=== PATIENT | male | born 1935 | race Caucasian/White ===

== ENCOUNTER → 2017-04-20 | Outpatient (CLI) | payer MEDICARE | END | disposition home or self-care (01) | LOC: PCVCIMAG 09:38 | PROVIDERS: ATTEND Internal Medicine | DX: I50.32 Chronic diastolic (congestive) heart failure (principal); E78.2 Mixed hyperlipidemia; I26.99 Other pulmonary embolism without acute cor pulmonale; I63.429 Cerebral infarction due to embolism of unspecified anterior cerebral artery; I10 Essential (primary) hypertension | CPT/HCPCS: 80061; 93005; 93306; G0463 ==

== ENCOUNTER → 2017-10-23 | Outpatient (CLI) | payer MEDICARE ==
--- NOTE | 2017-10-23 16:45 | PCVCIMAG ---
APPROVED REPORT Laterality: Bilateral Patient Location: Out-Patient Indications Stenosis Doppler Spectral Velocity Analysis PSV / EDVPSV / EDV ECA (R) 124 / 8 cm/sECA (L) 200 / 16 cm/s dICA (R) 81 / 24 cm/sdICA (L) 92 / 30 cm/s Gary (R) 97 / 18 cm/smICA (L) 131 / 30 cm/s pICA (R) 102 / 19 cm/spICA (L) 164 / 50 cm/s Bulb (R) 71 / 14 cm/sBulb (L) 92 / 18 cm/s dCCA (R) 95 / 14 cm/sdCCA (L) 98 / 14 cm/s mCCA (R) 106 / 16 cm/smCCA (L) 114 / 23 cm/s Vert (R) 76 / 19 cm/sVert (L) 32 / 9 cm/s ICA/CCA 1.07 ICA/CCA 1.95 Basic Measurements Blood Pressure: Pulses: Right Left RightLeft Brachial(Sitting) 140/72mmHgTemporal Real Time B-Mode Imaging Vert. (R)AntegradeVert. (L)Antegrade Findings The right carotid bulb has mild plaque. The right proximal internal carotid artery shows no significant stenosis. The right common carotid artery shows no significant stenosis. The right external carotid artery shows no significant stenosis. The left carotid bulb has moderate calcified plaque. The left proximal internal carotid artery shows 60-70% stenosis. The left common carotid artery shows no significant stenosis. The left external carotid artery shows >50% stenosis. Conclusion 1. Right internal carotid artery plaquing 2. Left internal carotid artery stenosis (60-70%) 3. Antegrade vertebral flow
== END | disposition home or self-care (01) ==
LOC: PCVCIMAG 14:46
PROVIDERS: ATTEND Internal Medicine Cardiovascular Disease
DX: I65.23 Occlusion and stenosis of bilateral carotid arteries (principal); E78.01 Familial hypercholesterolemia; I77.9 Disorder of arteries and arterioles, unspecified; I67.9 Cerebrovascular disease, unspecified; Z79.899 Other long term (current) drug therapy
CPT/HCPCS: 80061; 93005; 93880; G0463

== ENCOUNTER → 2017-10-23 | Outpatient (CLI) | payer MEDICARE | END | disposition home or self-care (01) | LOC: PCVCCLINIC 16:01 | PROVIDERS: ATTEND Internal Medicine Cardiovascular Disease | DX: I10 Essential (primary) hypertension (principal); E78.01 Familial hypercholesterolemia; I77.9 Disorder of arteries and arterioles, unspecified; I65.23 Occlusion and stenosis of bilateral carotid arteries; Z79.899 Other long term (current) drug therapy | CPT/HCPCS: 80061; 93005; G0463 ==

== ENCOUNTER → 2018-05-23 | Outpatient (CLI) | payer MEDICARE | END | disposition home or self-care (01) | LOC: PCVCCLINIC 10:40 | DX: I10 Essential (primary) hypertension (principal); E87.5 Hyperkalemia; I77.9 Disorder of arteries and arterioles, unspecified; I67.9 Cerebrovascular disease, unspecified; R94.31 Abnormal electrocardiogram [ECG] [EKG]; Z88.8 Allergy status to other drugs, medicaments and biological substances; Z79.899 Other long term (current) drug therapy | CPT/HCPCS: 93005; G0463 ==

== ENCOUNTER → 2019-02-25 | Outpatient (CLI) | payer MEDICARE | END | disposition home or self-care (01) | LOC: PCVCCLINIC 11:51 | PROVIDERS: ATTEND Internal Medicine Cardiovascular Disease | DX: I26.99 Other pulmonary embolism without acute cor pulmonale (principal); I65.22 Occlusion and stenosis of left carotid artery; R06.02 Shortness of breath; I11.0 Hypertensive heart disease with heart failure; I50.9 Heart failure, unspecified; E78.00 Pure hypercholesterolemia, unspecified; Z78.9 Other specified health status; Z88.0 Allergy status to penicillin; Z88.8 Allergy status to other drugs, medicaments and biological substances; Z79.899 Other long term (current) drug therapy | CPT/HCPCS: 36415; 80061; 93005; G0463 ==

== ENCOUNTER → 2019-04-02 | Outpatient (CLI) | payer MEDICARE ==
[~2019-04-02] MED LIST: REGADENOSON 0.4 MG/5 ML DISP.SYRIN. IV ONE
--- NOTE | 2019-04-02 09:47 | PCVCIMAG ---
EXAM: BILATERAL CAROTID DUPLEX INDICATION: Carotid Occlusive Disease. FINDINGS: Doppler Measurements (centimeters per second): RIGHT: Peak CCA-106, Peak ECA-131, Diastolic ICA-19, Peak ICA-100, ICA/CCA Ratio-1.0. LEFT: Peak CCA-112, Peak ECA-192, Diastolic ICA-61, Peak ICA-217, ICA/CCA Ratio-1.9. RIGHT CAROTID: The carotid bulb has mild plaque. The proximal internal carotid artery shows <40% stenosis. The common carotid artery shows no significant stenosis. The external carotid artery shows 40% stenosis. LEFT CAROTID: The carotid bulb has moderate plaque. The proximal internal carotid artery shows 60-70% stenosis. The common carotid artery shows no significant stenosis. The external carotid artery shows 60% stenosis. Antegrade flow in both vertebral arteries. IMPRESSION: <40% stenosis of the right internal carotid artery with mild plaque. 60-70% stenosis of the left internal carotid artery with moderate plaque. LOC:[place] [id number]
--- NOTE | 2019-04-02 13:08 | PCVCIMAG ---
APPROVED REPORT Imaging Protocol: Rest Tc-99m/Stress Tc-99m 1 day Study performed: 04/02/2019 09:48:33 Indication: PE, CHF, Dyspnea Patient Location: Out-Patient Stress Nurse: Dee Dee Toscano RN, Milagro Clement RN NM Tech:Joce Leyva [id number] Ht: 5 ft 7 in Wt: 235 lbs BSA: 2.17 m2 HR: 72 bpm BP: 189/79 mmHg BMI: 36.8 Rhythm: Sinus Rhythm, First Degree AV Block, Incomplete RBBB, Nonspecific ST Abnormality Medical History Medical History: Age, Hyperlipidemia, HTN, CVD Medications: Pradaxa, Lisinopril, Demedex, Repatha, Synthroid Allergies: Multiple allergies, none related Exercise History: Sedentary Physical Disabilities: WC bound Resting Data Rest SPECT myocardial perfusion imaging was performed in supine position 45 minutes following the intravenous injection of 16 mCi of Tc-99m Sestamibi. Time of rest injection: 914 Date: 04/02/2019 Administration Route: IV Administration Site: Right AC Pharmacologic Stress Pharmacologic stress test was performed by injecting Regadenoson 0.4 mg IV push over 10-15 seconds immediately followed by the intravenous injection of 44.2 mCi of Tc-99m Sestamibi. Time of stress injection: 1044 Date: 04/02/2019 Administration Route: IV Administration Site: Right AC Gated Stress SPECT was performed 45 minutes after stress injection. The images were gated to evaluate regional wall motion and calculate left ventricular ejection fraction. Stress Test Details Stress Test: Pharmacologic stress testing performed using 0.4 mg of regadenoson per 5 mL given IV over 10 seconds. Reason for pharmacologic stress test: Uses walker. HRMax Heart Rate (APMHR): 137 bpm Resting HR: 72 bpmTarget HR (85% APMHR): 116 bpm Max HR Achieved: 76 bpm % of APMHR: 55 Recovery HR: 81 bpm BP Resting BP: 189/79 mmHg Max BP: 152/67 mmHg Recovery BP: 169/79 mmHg ECG Resting ECG: Sinus Rhythm, 1st degree AV block,nonspecific ST-T abnormalities Stress ECG: Sinus Rhythm, 1st degree AV block,nonspecific ST-T abnormalities Arrhythmia: None Recovery ECG: Sinus Rhythm, 1st degree AV block,nonspecific ST-T abnormalities Clinical Reason for Termination: Completed protocol Stress Symptoms: Dyspnea Exercise duration: min 55 sec Symptoms resolved with caffeine. Stress ECG Conclusion ECG: Non-ischemic Study Quality Study: Good Study Data Post stress, the left ventricular ejection was 73%.. SSS: 2 SRS: 0 SDS: 2 TID = 0.96. Perfusion No evidence of stress induced ischemia or prior myocardial infarction. Wall Motion Normal left ventricular size and function with no regional wall motion abnormalities. Nuclear Conclusion No evidence of stress induced ischemia or prior myocardial infarction. Normal left ventricular size and function with no regional wall motion abnormalities. Post stress, the left ventricular ejection was 73%. No prior study available for comparison. Interpreted by: Chris Whitney MD Electronically Approved: 04/02/2019 12:55:02 <Conclusion> ECG: Non-ischemic
== END | disposition home or self-care (01) ==
LOC: PCVCIMAG 08:26
PROVIDERS: ATTEND Internal Medicine Cardiovascular Disease
DX: I65.23 Occlusion and stenosis of bilateral carotid arteries (principal); E78.5 Hyperlipidemia, unspecified; I11.0 Hypertensive heart disease with heart failure; I50.9 Heart failure, unspecified; R06.09 Other forms of dyspnea
CPT/HCPCS: 36415; 78452; 80061; 93017; 93880; A9500; J2785